=== PATIENT | female | born 1945 | race Caucasian/White ===

== ENCOUNTER 2018-02-08 09:42 | Outpatient (CLI) | payer MEDICARE, MEDICAID | END 2018-02-08 09:43 | disposition home or self-care (01) | LOC: BICMAMMO 09:42 | PROVIDERS: ATTEND Nurse Practitioner Family | DX: Z12.31 Encounter for screening mammogram for malignant neoplasm of breast (principal); Z80.3 Family history of malignant neoplasm of breast | CPT/HCPCS: 77063; 77067 ==

== ENCOUNTER 2018-03-28 22:07 | Observation (INO) | payer MEDICARE, OTHER ==
[2018-03-28 22:41] LABS: #Basophils 0.1 thou/uL (0.0-0.2); #Lymphocytes 1.1 thou/uL (1.20-3.40); #Monocytes 0.4 thou/uL (0.11-0.59); #Neutrophils 10.7 thou/uL (1.40-6.50); %Basophils 0.5 % (0.0-1.0); %Eosinophils 0.1 % (0.0-10.0); %Lymphocytes 9.3 % (21.0-51.0); %Monocytes 2.9 % (0.0-10.0); %Neutrophils 87.3 % (42.0-75.0); Hemoglobin 16.4 g/dL (12.0-16.0); Mean Corpuscular HGB CONC 34.1 g/dL (32.0-36.0); Mean Corpuscular Hemoglobin 30.2 pg (27.0-31.0); Mean Corpuscular Volume 88.5 fL (78.0-98.0); Mean Platelet Volume 7.3 fL (7.4-10.4); Platelet Count 362 thou/uL (130-400); RBC Distribution Width 12.1 % (11.5-14.5); Red Blood Cell (RBC) Count 5.42 mill/uL (4.20-5.40); White Blood Cell (WBC) Count 12.2 thou/uL (4.8-10.8)
[2018-03-28] MEDS ORDERED: Ondansetron HCl/PF 4 MG/2 ML Vial ONE (22:46)
--- NOTE | 2018-03-28 22:58 | RAD ---
AP VIEW CHEST: 03/28/2018 HISTORY: Chest pain. FINDINGS: AP view chest demonstrates the lungs to be well aerated. No evidence of active intrathoracic disease is seen. No evidence of effusions, pneumonia, or pneumothorax is seen. IMPRESSION: Unremarkable anterior-posterior view chest. POS: [facility]
[2018-03-28 23:06] LABS: CKMB 1.4 ng/mL (0-6.6); Troponin I Less than 0.010 ng/mL (< 0.028)
[2018-03-28 23:07] LABS: ALT (SGPT) 22 U/L (8-55); AST (SGOT) 29 U/L (5-34); Albumin 4.3 g/dL (3.4-4.8); Alkaline Phosphatase 77 U/L (40-150); Anion Gap 16 mmol/L (10-20); BUN (Urea Nitrogen) 11 mg/dL (9.8-20.1); Calc. Creatinine Clearance 0 mL/min (70-130); Calcium 9.4 mg/dL (7.8-10.44); Carbon Dioxide 21 mmol/L (23-31); Chloride 98 mmol/L (98-107); Estimated GFR-MDRD 73; Globulin 3.2 g/dL (2.4-3.5); Glucose 172 mg/dL (80-115); Lipase 13 U/L (8-78); Potassium 3.9 mmol/L (3.5-5.1); Protein, Total 7.5 g/dL (6.0-8.3); Sodium 131 mmol/L (136-145)
[2018-03-29 00:22] LABS: Bilirubin Negative (Negative); Blood, Urine Small (Negative); Clarity CLEAR (Clear); Glucose, Urine (Dipstick) Negative (Negative); Leukocyte Negative (Negative); Nitrite Negative (Negative); Protein, Urine (Dipstick) 300 mg/dL (Neg-Trace); Specific Gravity, Urine 1.009 (1.002-1.036); Urobilinogen 0.2 mg/dL (0.2-1.0)
[2018-03-29 00:25] LABS: Bacteria/HPF None Seen HPF (None Seen)
[2018-03-29 00:30] LABS: Pathc Cast-AUWi Flag 2.61 (0-2.49)
[2018-03-29 00:51] LABS: Other Casts/LPF 0-3 FINELY GRAN LPF (0-3 Hyaline); Renal Epithelial None Seen HPF (0-3); Transitional Epithelial NONE SEEN HPF (0-3)
[2018-03-29 02:13] LABS: Troponin I Less than 0.010 ng/mL (< 0.028)
[2018-03-29] MEDS ORDERED: Ondansetron ODT 4 MG TAB SL PRN (02:21)
[2018-03-29] MEDS ORDERED: Ondansetron HCl/PF 4 MG/2 ML Vial IVP PRN ×2 (02:21→09:06)
[2018-03-29] MEDS ORDERED: Acetaminophen 325 MG TAB PO PRN ×2 (02:21→09:06)
[2018-03-29] MEDS ORDERED: Sodium Chloride 0.9% 1,000 ML IV SCH ×2 (02:30→09:15)
[2018-03-29 02:46] VITALS: BMI 27.5
[2018-03-29 02:56] LABS: Lactic Acid 2.4 mmol/L (0.5-2.2)
[2018-03-29 06:47] LABS: Troponin I Less than 0.010 ng/mL (< 0.028)
[2018-03-29] MEDS ORDERED: Nitroglycerin 0.4 MG TAB (25 Tab Bottle) PO PRN (09:06)
--- NOTE | 2018-03-29 14:30 | NM ---
MYOCARDIAL PERFUSION STUDY: 03/29/18 HISTORY: Chest pain. Hypertension. RADIOPHARMACEUTICAL: 27 millicuries technetium 99m Sestamibi, IV at stress and 9 millicuries technetium 99m Sestamibi, IV at rest. MEDICATIONS: 0.4 mg of Lexiscan, IV. FINDINGS: No significant reversible defect is seen between the rest and stress acquisitions. Gated images demon strate normal ventricular wall motion and wall thickening. The calculated left ventricular ejection f raction is 69%. IMPRESSION: 1. Normal myocardial perfusion study without evidence of a reversible defect seen to suggest isc hemia. 2. Normal LVEF of 69%. POS: [facility]
[2018-03-29] MEDS ORDERED: Regadenoson 0.4 MG/5 ML SYRINGE ONE (14:48)
--- NOTE | 2018-03-29 14:50 | HP ---
PRIMARY CARE PROVIDER: Karey Shaw. CHIEF COMPLAINT: Chest pain. HISTORY OF PRESENT ILLNESS: Ms. Hernandez is a pleasant 72-year-old lady who was seen at [facility] on 03/29/2018. She reports that yesterday she started feeling unwell. She reports that she had chest tightness, acc ompanied by nausea, vomiting, and diarrhea. She describes it as tightness like sensation, 9/10 at it s worst, accompanied by sweating and lightheadedness. It was on and off. She cannot recall any aggr avating or relieving factors. She reports that the nausea, vomiting, and diarrhea resolved last nigh t after she came to the emergency room. REVIEW OF SYSTEMS: All other systems reviewed and found to be negative. PAST MEDICAL HISTORY: Hypertension, asthma, and COPD. PAST SURGICAL HISTORY: Appendectomy, section, hysterectomy, and tubal ligation. SOCIAL HISTORY: The patient denies alcohol use or recreational drug use. She smokes cigars. FAMILY HISTORY: Her father from myocardial infarction. Her brother also from myocardial i nfarction. ALLERGIES: PENICILLIN. CURRENT MEDICATIONS: Amlodipine 10 mg daily and hydrochlorothiazide 12.5 mg daily. PHYSICAL EXAMINATION: GENERAL: On examination, Ms. Aaron is awake and alert, not in acute distress. VITAL SIGNS: Blood pressure is 113/70, pulse is 66, she is breathing at rate of 20 and saturating 98 % on room air. She is afebrile. EYES: No scleral icterus. No conjunctival pallor. ENT: Moist mucosal membranes, no oropharyngeal erythema or exudates. NECK: Supple, nontender, trachea is midline. RESPIRATORY: Accessory muscles of breathing are not active. Chest wall movements are symmetric bila terally. LUNGS: Clear to auscultation without wheeze, rhonchi or crepitations. CARDIOVASCULAR: S1 and S2 are heard, regular. Peripheral pulses are palpable. No carotid bruit, no pericardial rub. ABDOMEN: Soft, nontender, bowel sounds are heard, no hepatomegaly, no splenomegaly. NEUROLOGIC: Cranial nerves II-XII intact. Deep tendon reflexes are 2+. MUSCULOSKELETAL: Power is 5/5 in all 4 extremities. SKIN: No rashes or subcutaneous nodules. LYMPHATIC: No cervical lymphadenopathy. PSYCHIATRIC: Normal mood, normal affect. The patient is oriented to person, place, and time. IMAGING DATA AND LABORATORY DATA: Ms. Hernandez's labs and investigations were reviewed. I reviewed her chest x-ray, which does not show any pulmonary infiltrates. I also reviewed her electrocardiogra m, which shows normal sinus rhythm, no ST changes to suggest an acute coronary syndrome. She has luis m kocytosis with 12,200 white cells, of which 87.3% are neutrophils, elevated hemoglobin of 16.4, daniel l platelet count, decreased sodium of 131, unremarkable liver profile, elevated lactic acid level of 2.4, normal creatinine, normal troponin I, normal lipase and urinalysis that is negative for nitrite and leukocyte esterase. ASSESSMENT AND PLAN: Ms. Aaron is a pleasant 72-year-old lady who was seen at [facility] on 03/29/2018. Her problem list includes: 1. Chest pain: Etiology is unclear. She will be admitted to the hospital for telemetry monitoring and for a nuclear stress test. Further management depending on outcome of the stress test. 2. Nausea and vomiting: This has resolved, etiology is unclear. 3. Diarrhea: This has resolved as well. Etiology is unclear. 4. Hyponatremia: Mild, likely asymptomatic. 5. Leukocytosis: No evidence of infection at this point. Could be secondary to gastroenteritis, gi nely the presentation with nausea, vomiting, and diarrhea. 6. Elevated hemoglobin: Could be secondary to tobacco use. She will need to have it rechecked thro h her primary care provider. 7. Tobacco abuse: Patient has been counseled regarding tobacco cessation. We will start her on ezio otine replacement therapy. Many thanks for allowing me to participate in your patient's care. Please feel free to contact me wi th any questions or concerns. LEVEL OF RISK: High. LEVEL OF COMPLEXITY: High.
[2018-03-29 15:20] VITALS: BP 154/76; TEMP 98.5
--- NOTE | 2018-03-30 02:50 | DIS ---
PRIMARY CARE PROVIDER: Dr. Karey Shaw. DATE OF ADMISSION: 03/28/2018 DATE OF DISCHARGE: 03/29/2018 DISCHARGE DIAGNOSES: 1. Chest pain. 2. Most likely musculoskeletal etiology for chest pain. 3. Probable viral gastroenteritis. HOSPITAL COURSE: Ms. Hernandez is a pleasant 72-year-old lady who was admitted to [facility] on observation status on 03/29/2018 for chest pain. Her chest pain resolved after adm ission. She had a nuclear stress test, which was normal. The left ventricular ejection fraction was 69%. She also had a normal D-dimer. She also had nausea, vomiting, and diarrhea at the time of admission. All these resolved after she c ronald to the emergency room. This was most likely secondary to gastroenteritis, likely viral. Many thanks for allowing me to participate in your patient's care. Please feel free to contact me wi th any questions or concerns. DISCHARGE DESTINATION: Home.
[2018-03-30] MEDS ORDERED: Aspirin 325 MG TAB PO SCH (09:00)
--- NOTE | 2018-04-02 11:47 | EKG ---
Test Reason : Blood Pressure : / mmHG Vent. Rate : 071 BPM Atrial Rate : 071 BPM P-R Int : 126 ms QRS Dur : 086 ms QT Int : 442 ms P-R-T Axes : 046 -21 047 degrees QTc Int : 480 ms Normal sinus rhythm Prolonged QT Abnormal ECG Confirmed by LINDSAY ALEXANDRA DO ([id number]), web editor SOULEYMANE HERRERA ([id number]) on 04/02/2018 11:46:52 AM Referred By: Confirmed By:LINDSAY ALEXANDRA DO
== END 2018-03-29 18:57 | disposition home or self-care (01) ==
LOC: ERS 22:07 → ERHOLD 23:55 → 2SW 03-29 02:00
PROVIDERS: ADMIT Hospitalist; ATTEND Hospitalist
DX: R07.89 Other chest pain (principal); R11.2 Nausea with vomiting, unspecified; R19.7 Diarrhea, unspecified; E87.1 Hypo-osmolality and hyponatremia; F17.210 Nicotine dependence, cigarettes, uncomplicated; D72.829 Elevated white blood cell count, unspecified; I10 Essential (primary) hypertension; J44.9 Chronic obstructive pulmonary disease, unspecified; Z79.899 Other long term (current) drug therapy; Z88.0 Allergy status to penicillin
CPT/HCPCS: 71045; 78452; 80053; 82550; 82553; 83605 ×2; 83690; 84484 ×3; 85025; 85379; 93005; 93017; 94760; 96361 ×2; 96374; 96375; 99285; A9500; G0378 ×2; 36415; 81003; 81015; J2270; J2405; J2785

== ENCOUNTER 2018-07-24 14:59 | Inpatient (IN) | payer MEDICARE, OTHER ==
[~2018-07-24 14:59] MED LIST: ISOVUE-370 76%-LOCM 1 ML ONE
--- NOTE | 2018-07-24 15:30 | CT ---
CT OF THE HEAD WITHOUT CONTRAST: DATE: 07/24/2018. COMPARISON: None. HISTORY: Right-sided weakness, stroke alert. TECHNIQUE: Axial Ct imaging obtained at 5 mm intervals from vertex through the skull base without contrast. FINDINGS: There is no intracranial hemorrhage, midline shift, mass effect, or ventricular enlargement. The vis ualized paranasal sinuses and mastoid air cells are well aerated. There is no displaced calvarial fr acture noted. IMPRESSION: No acute findings. Results were called to Dr. Martin at 3:20 p.m. 07/24/2018. CODE CR POS: [facility]
[2018-07-24 15:35] LABS: #Basophils 0.1 thou/uL (0.0-0.2); #Eosinphils 0.1 thou/uL (0.0-0.7); #Lymphocytes 3.1 thou/uL (1.20-3.40); #Monocytes 0.5 thou/uL (0.11-0.59); #Neutrophils 3.7 thou/uL (1.40-6.50); %Basophils 0.9 % (0.0-1.0); %Monocytes 6.6 % (0.0-10.0); %Neutrophils 49.5 % (42.0-75.0); Hemoglobin 16.5 g/dL (12.0-16.0); Mean Corpuscular HGB CONC 34.6 g/dL (32.0-36.0); Mean Corpuscular Hemoglobin 31.4 pg (27.0-31.0); Mean Platelet Volume 7.5 fL (7.4-10.4); Platelet Count 255 thou/uL (130-400); Red Blood Cell (RBC) Count 5.26 mill/uL (4.20-5.40); White Blood Cell (WBC) Count 7.4 thou/uL (4.8-10.8)
[2018-07-24 15:51] LABS: ALT (SGPT) 14 U/L (8-55); AST (SGOT) 13 U/L (5-34); Albumin 3.9 g/dL (3.4-4.8); Alkaline Phosphatase 67 U/L (40-150); Anion Gap 16 mmol/L (10-20); BUN (Urea Nitrogen) 13 mg/dL (9.8-20.1); Bilirubin, Total 0.7 mg/dL (0.2-1.2); Calc. Creatinine Clearance 0 mL/min (70-130); Calcium 9.3 mg/dL (7.8-10.44); Carbon Dioxide 20 mmol/L (23-31); Chloride 107 mmol/L (98-107); Estimated GFR-MDRD 63; Globulin 2.9 g/dL (2.4-3.5); Glucose 102 mg/dL (83-110); Potassium 4.5 mmol/L (3.5-5.1); Protein, Total 6.8 g/dL (6.0-8.3); Sodium 138 mmol/L (136-145)
[2018-07-24 15:53] LABS: PTT 37.6 SEC (22.9-36.1)
--- NOTE | 2018-07-24 15:53 | CT ---
CT ANGIOGRAM HEAD CT ANGIOGRAM NECK: DATE: 07/24/2018. COMPARISON: None. HISTORY: Stroke protocol, weakness of the right-sided weakness and slurred speech. TECHNIQUE: Axial CT imaging at 1.25 mm intervals obtained from the skull base through the lung apices with IV co ntrast using a CT angiogram protocol. Coronal and sagittal 3D reformatted imaging obtained. FINDINGS: There are emphysematous changes noted in the imaged lung apices bilaterally. The retroantral fat and the parapharyngeal fat appear clear bilaterally. The parotid glands and submandibular glands are grossly unremarkable. Tonsillar pillars, epiglottis, and preepiglottic fat, hyoid bone, thyroid cartilage, cricoid cartilage, and thyroid gland demonstra te no acute findings. There is a suggestion of a thyroid nodule on the left measuring up to 1.4 cm. Followup thyroid ultrasound suggested. The origin of the innominate artery, left subclavian artery, and left common carotid artery appears u nremarkable. The origin of the right vertebral artery and right subclavian artery appears unremarkab le as well. Bilateral vertebral artery origins appear unremarkable. Bilateral vertebral arteries are tortuous pr oximally and in their mid portion. Bilateral vertebral arteries are normal in course and caliber oth erwise. No hemodynamically significant stenosis is seen involving the vertebral artery on either em e. On the basis of NASCET criteria, there is no hemodynamically significant stenosis involving the commo n carotid artery on either side. There is mild partially calcified plaque within the proximal ICA bi laterally. On the basis of NASCET criteria, there is no hemodynamically significant stenosis associa jc with the internal carotid artery on either side. The internal carotid artery is tortuous bilater ally. The basilar artery is tortuous and demonstrates patency. Branches of the basilar artery appear paten t as well. There is either a hypoplastic P1 segment on the right or a origin of the right post erior cerebellar artery. No sacular aneurysm, high-grade stenosis, or vascular occlusion of the posterior circulation is seen. The ICA bifurcation appears unremarkable. The M1 segment is patent bilaterally. The MCA and ESVIN branches distally appear grossly unremarkable. No central arterial occlusion, sacula r aneurysm, or high-grade stenosis of the anterior circulation noted. There is no lymphadenopathy seen in the neck. Osseous structures demonstrate no acute findings. IMPRESSION: 1. Intracranial arterial structures demonstrate no central vascular occlusion. 2. On the basis of NASCET criteria, there is no hemodynamically significant stenosis involving the c arotid or vertebral system on either side. 3. Incidental note made of a thyroid nodule on the left for which thyroid ultrasound is suggested. Results called to Dr. Martin at 3:40 p.m. 07/24/2018. CODE CR POS: [facility]
[2018-07-24 15:54] LABS: INR-International Normal Ratio 1.2
--- NOTE | 2018-07-24 18:21 | RAD ---
CHEST ONE VIEW PORTABLE: History: Possible stroke alert. Left sided facial droop. Right sided weakness. Slurred speech. Comparison: 03-28-18 FINDINGS: Heart size is within normal limits. The lungs are clear. IMPRESSION: No acute intrathoracic disease. Atherosclerosis of the aorta with ectasia. POS: [facility]
[2018-07-24 18:26] LABS: Bilirubin Negative (Negative); Blood, Urine Negative (Negative); Clarity CLEAR (Clear); Glucose, Urine (Dipstick) Negative (Negative); Leukocyte Small (Negative); Nitrite Negative (Negative); Protein, Urine (Dipstick) Negative (Neg-Trace); Urobilinogen 0.2 mg/dL (0.2-1.0); pH, Urine 6.5 (5.0-9.0)
[2018-07-24 18:28] LABS: Bacteria/HPF Rare-Few HPF (None Seen); Hyaline Casts/LPF 0-3 HYALINE CAST LPF (0-3 Hyaline); Pathc Cast-AUWi Flag 0.14 (0-2.49); RBC/HPF 0-3 HPF (0-3)
[2018-07-24 18:29] LABS: Specific Gravity, Urine Greater than 1.060 (1.002-1.036)
[2018-07-24 19:07] LABS: Troponin I Less than 0.010 ng/mL (< 0.028)
[2018-07-24] MEDS ORDERED: hydrALAZINE 20 MG/ML VIAL SLOW IVP PRN (20:36)
[2018-07-24] MEDS ORDERED: Albuterol Sulfate 1.25 MG/3 ML NEB NEB PRN (20:38)
--- NOTE | 2018-07-24 21:52 | HP ---
PRIMARY CARE PROVIDER: [facility]. CHIEF COMPLAINT: Right-sided weakness. HISTORY OF PRESENT ILLNESS: This 73-year-old female with COPD, on home oxygen at night; hypertension; migraine headache; and tobacco abuse, who presents to the emergency room with a complaint of right-sided weakness. The patient reports she had a headache yesterday consistent with her typical migraines that she averages few times per month, for which she went to bed. She woke up today shortly before 10:00 a.m. and was unable to move her right arm and right leg. She states that she tried to get up to make coffee, fell, and did not tell anyone. She took 600 mg of ibuprofen and went back to bed. She again woke up few hours later with slurred speech and facial drooping, noticed by her roommate and her friend, who called the ambulance. The patient was life flighted to this hospital for further evaluation. Current deficits now are right-sided facial numbness, right arm and leg weakness with little movement in either, as well as diplopia. In addition to the ibuprofen, the patient took her roommate's Eliquis 5 mg sometime between 2 and 3 p.m. this afternoon. She reports that her roommate is on Eliquis for history of stroke, and she thought it would be a good idea. In the emergency room, the patient's presentation consistent with stroke, she had a negative CT, she was not a candidate for tPA due to waking up with symptoms and time until evaluation, and hospitalist called for admission. She did receive 500 mL of normal saline and 324 mg of aspirin. PAST MEDICAL HISTORY: 1. COPD and asthma. 2. Hypertension. 3. Migraines. PAST SURGICAL HISTORY: 1. Appendectomy. 2. x3. 3. Hysterectomy and tubal ligation. 4. Cholecystectomy. ALLERGIES: PENICILLIN. CURRENT MEDICATIONS: Reconciled with the patient; 1. Melatonin 5 mg two tablets at night. 2. Combivent twice daily one puff. 3. Albuterol by nebulizer 3 to 4 times per day as needed. 4. Aumjsfo-hybwkwbxb-asvo one tablet twice daily. 5. Hydrochlorothiazide 12.5 mg daily. 6. Amlodipine 10 mg daily. 7. Symbicort one inhalation twice daily. 8. ProAir two puffs four times daily. 9. Home oxygen 2.5 L at night and during the day if she needs. SOCIAL HISTORY: The patient lives with her roommate, who is her surrogate decision maker. Olivia Jane, phone #[phone]. She is a full code, she uses 1/2 pack of tobacco per day. REVIEW OF SYSTEMS: Positive for chills over the past few weeks, vomiting and nausea associated with headache, chronic difficulty breathing where she has chest tightness and wheezing as well as productive cough, and bilateral leg pain at night. It is negative for fevers, difficulty swallowing, or changes in movement on her left side. All remaining review of systems are reviewed and negative. PHYSICAL EXAMINATION: VITAL SIGNS: Blood pressure 162/97, pulse 55, respirations 17, temp 97.8, and sats 98% on room air. GENERAL: Awake, alert, responsive, in no apparent distress. Able to speak in regular sentences. HEENT: Her pupils are equal, round, and reactive to light. Oral mucosa is pink and moist. NECK: Supple, nontender. LYMPHATICS: No palpable cervical or supraclavicular lymphadenopathy. LUNGS: She has scattered rhonchi, expiratory wheezing, and fair air movement. HEART: Normal S1 and S2. Regular rate and rhythm. No significant murmur. ABDOMEN: Soft. Present bowel sounds. Nontender, nondistended. EXTREMITIES: No clubbing, cyanosis, or edema. SKIN: No visible rashes. NEURO: Right-sided facial drooping. Right upper extremity; she has 2/5 in her right upper extremity with more movement in her fingers and her shoulder. Her right lower extremity; some movement in her toes and able to move slightly from side to side with a 2/5 strength. PSYCH: The patient is euthymic. Appears stated age, making good eye contact. LABORATORY DATA: Reviewed. CBC; 7.4, 16.5, 47.8, and 255. INR 1.2. Renal panel; 138, 4.5, 107, 20, 13, 0.88, and 102. LFTs negative. Troponin negative x2. UA shows greater than 1.06 specific gravity, small leukocyte esterase, 7 to 10 squamous cells, and 11 to 20 white blood cells. Chest x-ray is personally reviewed; negative for any acute process, atherosclerosis of the aorta with ectasia. CT of the brain without contrast; no acute findings. CT angiogram of the head and neck showed no central vascular occlusion, no hemodynamically significant stenosis, and incidental note of a thyroid nodule on the left with recommendation for a thyroid ultrasound. EKG, personally reviewed; sinus rhythm, normal axis, normal intervals, no ST changes. IMPRESSION: 1. Stroke in a patient with risk factors of hypertension and tobacco abuse. 2. Hypertension, unknown control. 3. Chronic obstructive pulmonary disease and asthma, at least moderate in severity by history. 4. Tobacco abuse. 5. Thyroid nodule, incidental finding on CT. 6. Possible polycythemia versus dehydration. 7. Nocturnal leg pain, possibly claudication. PLAN: 1. Admission to the hospital. 2. Stroke Team evaluation including Neurology, PT/OT, and Speech. 3. Continuing the aspirin. 4. Permissive hypertension, prn hydralazine for bp > 220/110.. 5. MRI ordered for tomorrow to evaluate the extent of stroke. 6. Continuing her inhalers including inhaled long-acting bronchodilator and steroid, as well as scheduled Combivent and p.r.n. albuterol. We will also order oxygen for as-needed use. 7. Monitor for any bleeding given the dose of Eliquis that patient took earlier today. 8. Monitoring on telemetry and echocardiogram. 9. Recommend evaluation of leg pain for possible claudication, and thyroid nodule, as an outpatient with primary care provider. 10. DVT prophylaxis with enoxaparin. 11. GI prophylaxis, not indicated. 12. Code status is Full. Surrogate decision maker is Olivia Jane with phone number above. 13. The patient is at high risk given age comorbidities and current presentation. 14. Reviewed the plan of care with the patient, who demonstrates understanding. No questions or further needs at end of evaluation. Job ID: [id number] [facility]
[2018-07-24 22:27] LABS: Troponin I Less than 0.010 ng/mL (< 0.028)
[2018-07-24] MEDS: Atorvastatin Calcium 40 MG TAB PO SCH (23:01)
[2018-07-25 05:22] LABS: #Basophils 0.1 thou/uL (0.0-0.2); #Eosinphils 0.1 thou/uL (0.0-0.7); #Lymphocytes 2.6 thou/uL (1.20-3.40); #Monocytes 0.5 thou/uL (0.11-0.59); #Neutrophils 3.5 thou/uL (1.40-6.50); %Basophils 1.1 % (0.0-1.0); %Eosinophils 0.9 % (0.0-10.0); %Lymphocytes 39.2 % (21.0-51.0); %Monocytes 7.5 % (0.0-10.0); %Neutrophils 51.3 % (42.0-75.0); Hemoglobin 14.3 g/dL (12.0-16.0); Mean Corpuscular HGB CONC 33.6 g/dL (32.0-36.0); Mean Corpuscular Hemoglobin 30.4 pg (27.0-31.0); Mean Corpuscular Volume 90.5 fL (78.0-98.0); Mean Platelet Volume 7.7 fL (7.4-10.4); Platelet Count 249 thou/uL (130-400); RBC Distribution Width 11.8 % (11.5-14.5); Red Blood Cell (RBC) Count 4.72 mill/uL (4.20-5.40); White Blood Cell (WBC) Count 6.7 thou/uL (4.8-10.8)
[2018-07-25 05:41] VITALS: BMI 27.8
[2018-07-25 05:47] LABS: Anion Gap 10 mmol/L (10-20); BUN (Urea Nitrogen) 16 mg/dL (9.8-20.1); Calc. Creatinine Clearance 69 mL/min (70-130); Carbon Dioxide 30 mmol/L (23-31); Cardiac Risk 3.7 (Less than 4.5); Chloride 105 mmol/L (98-107); Cholesterol 155 mg/dl (< 200 Desired); Estimated GFR-MDRD 63; Glucose 95 mg/dL (83-110); HDL Cholesterol 42 mg/dL (>60 Neg Risk); LDL Cholesterol, Calculated 92 mg/dL; Potassium 3.8 mmol/L (3.5-5.1); Sodium 141 mmol/L (136-145); Triglycerides 106 mg/dL (Less than 150)
[2018-07-25] MEDS: Arformoterol 15 MCG/2 ML NEB NEB SCH ×2 (07:49→19:19)
[2018-07-25] MEDS: Budesonide 0.5 MG/2 ML NEB INH SCH ×2 (07:49→19:18)
--- NOTE | 2018-07-25 08:44 | PDOC.PN ---
- Subjective Encounter Start Date: 07/25/18 Encounter Start Time: 11:30 Subjective: Patient reports some improvement in weakness on right side. Arm better -: than leg. Eating well and no dysarthria/aphasia. Had MRI this morning. - Objective Resuscitation Status - Order Detail: 07/24/18 20:36 Resuscitation Status Routine Resuscitation Status: FULL: Full Resuscitation MAR Reviewed: Yes Vital Signs & Weight: Vital Signs (12 hours) Temp Pulse Resp BP Pulse Ox 07/25/18 07:57 92 L 07/25/18 07:49 60 16 07/25/18 07:37 97.7 F 57 L 18 152/83 H 92 L 07/25/18 04:00 97.7 F 59 L 18 138/85 99 07/25/18 02:32 64 16 07/24/18 22:15 96 07/24/18 22:09 60 20 96 07/24/18 22:05 98.0 F 58 L 16 143/95 H 96 Weight Weight 167 lb 4.8 oz Result Diagrams: 07/25/18 04:45 07/25/18 04:45 Additional Labs: Accuchecks 07/24/18 15:18 POC Glucose 101 Phys Exam - Physical Examination Constitutional: NAD HEENT: moist MMs Respiratory: no wheezing, no rales, no rhonchi Cardiovascular: RRR, no significant murmur Gastrointestinal: soft, positive bowel sounds Musculoskeletal: no edema RUE 3.5/5 RLE 3/5 No/minimal facial droop Psychiatric: normal affect, A&O x 3 Dx/Plan (1) Acute ischemic stroke Code(s): I63.9 - CEREBRAL INFARCTION, UNSPECIFIED Status: Acute Comment: On ASA, Atorvastatin, MRI pending (2) HTN (hypertension) Code(s): I10 - ESSENTIAL (PRIMARY) HYPERTENSION Status: Chronic Qualifiers: Hypertension type: essential hypertension Qualified Code(s): I10 - Essential (primary) hypertension (3) COPD (chronic obstructive pulmonary disease) Status: Chronic (4) Tobacco abuse Code(s): Z72.0 - TOBACCO USE Status: Chronic (5) Thyroid nodule Code(s): E04.1 - NONTOXIC SINGLE THYROID NODULE Status: Acute Comment: Incidental finding on CT, needs outpatient followup - Plan cont current plan of care, PT/OT, DVT proph w/lovenox, DVT proph w/SCDs * . - Discharge Day Encounter end time: 11:45
[2018-07-25] MEDS: Aspirin 325 mg Enteric Coated Tablet PO SCH (08:54)
[2018-07-25] MEDS: Enoxaparin Sodium 40 MG/0.4 ML SYRINGE SC SCH (08:54)
--- NOTE | 2018-07-25 09:41 | MRI ---
NONCONTAST BRAIN MRI: COMPARISON: Reference is made to head CT of previous day. INDICATION: History of right-sided weakness and stroke. FINDINGS: There is no acute territorial infarction, intracranial hemorrhage, mass effect, midline shift, or nely triculomegaly. There is mild chronic ischemic disease of the cerebral white matter. Motion artifac t limits evaluation. There is moderate right mastoid fluid. Correlate clinically. No intracranial hemorrhagic susceptibility. IMPRESSION: 1. No acute territorial infarction or mass effect. 2. Mild chronic ischemic disease. 3. Right mastoid effusion. POS: [facility]
[2018-07-25] MEDS: Acetaminophen 325 MG TAB PO PRN (16:40)
[2018-07-25] MEDS ORDERED: Chloraseptic Spray 180 ml Bottle PO PRN (17:34)
--- NOTE | 2018-07-25 22:31 | CON ---
DATE OF CONSULTATION: 07/25/2018 TYPE OF CONSULTATION: Neurology. CONSULTING PHYSICIAN: Hospitalist Service. 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 2. Hypertension. PLAN: 1. Aspirin 325 mg per day. 2. Lipitor 40 mg per day. 3. Continue blood pressure control. 4. Outpatient therapy program. HISTORY OF PRESENT ILLNESS: Ms. Hernandez is a 73-year-old white female with a known history of hypertension. She reports she awoke from sleep with right-sided weakness yesterday. She denies any associated headache, nausea, vomiting or vertigo. She does report diminished sensation to touch on that side as well. Her CT and CT angiograms were all unremarkable. She had a followup MRI of the brain, which revealed minimal amount of small-vessel ischemic changes but no acute ischemic event. She continues to report neurologic deficit. She was able to walk with a walker to the bathroom in an independent fashion. PAST MEDICAL HISTORY: Otherwise negative. ALLERGIES: PENICILLIN. MEDICATIONS: 1. Hydrochlorothiazide. 2. Norvasc. 3. Melatonin. FAMILY HISTORY: Unremarkable. REVIEW OF SYSTEMS: No complaint of confusion, loss of consciousness, neck pain, difficulty swallowing, chest pain, shortness of breath, abdominal pain, cramps or diarrhea, joint pain, or swelling. PHYSICAL EXAMINATION: GENERAL: This is a well-nourished elderly woman, sitting up in the bed, in no acute distress. VITAL SIGNS: Blood pressure 141/87, pulse 82, respirations 20, and temperature 98.7. HEENT: Pupils are equal. Conjunctivae clear. Oropharynx clear. NECK: Supple. No lymphadenopathy. EXTREMITIES: No cyanosis, clubbing, or edema. ABDOMEN: Nontender. NEUROLOGIC: She was alert and cooperative. Her speech is fluent and clear. Cranial nerve exam was only notable for subtle right facial flattening. Motor exam showed antigravity strength on the right side, though she had some variable amount of effort with different movements. Sensation was subjectively decreased in the right arm and leg. Reflexes show downgoing toes bilaterally. No tremor or other abnormal movement was noted. She can walk with the use of a walker. LABORATORY STUDIES: Including CBC, coags, and chemistry panel were unremarkable. Her risk ratio was 3.7. Imaging was reviewed. SUMMARY: Given the inconsistent findings on exam, I suspect that this is embellished. Agree with current management. She appears stable for discharge. Job ID: [id number]
[2018-07-25] MEDS: Atorvastatin Calcium 40 MG TAB PO SCH (22:34)
[2018-07-26] MEDS: Arformoterol 15 MCG/2 ML NEB NEB SCH (07:42)
[2018-07-26] MEDS: Budesonide 0.5 MG/2 ML NEB INH SCH (07:47)
--- NOTE | 2018-07-26 08:54 | PDOC.PN ---
- Subjective Encounter Start Date: 07/26/18 Encounter Start Time: 11:00 Subjective: Patient reports improvement in symptoms. Got up with PT and amb -: in hallway with walker. Ready to go home. - Objective Resuscitation Status - Order Detail: 07/24/18 20:36 Resuscitation Status Routine Resuscitation Status: FULL: Full Resuscitation MAR Reviewed: Yes Vital Signs & Weight: Vital Signs (12 hours) Temp Pulse Resp BP Pulse Ox 07/26/18 07:48 69 16 95 07/26/18 07:47 97.8 F 72 18 144/88 H 91 L 07/26/18 07:42 69 16 95 07/26/18 04:00 98.0 F 75 19 151/92 H 93 L 07/26/18 00:00 98.0 F 82 19 125/74 95 07/25/18 21:43 74 18 99 07/25/18 21:25 95 Weight Weight 167 lb 4.8 oz I&O: 07/25/18 07/26/18 07/27/18 06:59 06:59 06:59 Intake Total 1999 Balance 1999 Result Diagrams: 07/25/18 04:45 07/25/18 04:45 Phys Exam - Physical Examination Constitutional: NAD HEENT: moist MMs Respiratory: no wheezing, no rales, no rhonchi Cardiovascular: RRR, no significant murmur Gastrointestinal: soft, positive bowel sounds Musculoskeletal: no edema Patient acts like she can't lift her right arm, but if she puts her left anderson nd on top to stabilize she then can lift it up. 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 - OTHER SOMATOFORM DISORDERS Status: Acute Comment: MRI neg, exam variable, patient able to get around room better than exam would suggest (2) Acute ischemic stroke Code(s): I63.9 - CEREBRAL INFARCTION, UNSPECIFIED Status: Ruled-out Comment : On ASA, Atorvastatin, MRI negative for stroke (3) HTN (hypertension) Code(s): I10 - ESSENTIAL (PRIMARY) HYPERTENSION Status: Chronic Qualifiers: Hypertension type: essential hypertension Qualified Code(s): I10 - Essential (primary) hypertension (4) COPD (chronic obstructive pulmonary disease) Status: Chronic (5) Tobacco abuse Code(s): Z72.0 - TOBACCO USE Status: Chronic (6) Thyroid nodule Code(s): E04.1 - NONTOXIC SINGLE THYROID NODULE Status: Acute Comment: Incidental finding on CT, needs outpatient followup - Plan cont current plan of care, PT/OT Patient would like to go home. States she has a walker at home already. -: Will arrange home health and discharge home today. * . - Discharge Day Encounter end time: 11:15
[2018-07-26] MEDS: Enoxaparin Sodium 40 MG/0.4 ML SYRINGE SC SCH (09:29)
[2018-07-26] MEDS: Acetaminophen 325 MG TAB PO PRN (09:29)
[2018-07-26] MEDS: Aspirin 325 mg Enteric Coated Tablet PO SCH (09:29)
[2018-07-26 11:49] VITALS: BP 142/88; TEMP 97.9
--- NOTE | 2018-07-27 04:43 | DIS ---
DATE OF ADMISSION: 07/24/2018 DATE OF DISCHARGE: 07/26/2018 PRIMARY CARE PHYSICIAN: Karey Shaw. REASON FOR ADMISSION: Ischemic stroke. DIAGNOSES AT DISCHARGE: 1. Psychogenic paralysis. 2. Acute ischemic stroke ruled out. 3. History of previous ischemic strokes. 4. Hypertension. 5. Chronic obstructive pulmonary disease. 6. Tobacco abuse. 7. Thyroid nodule. PROCEDURES: 1. CT of the brain showing no acute findings. 2. CT angiography of the head and neck showing no central vascular occlusion, no hemodynamically significant stenosis of the carotid or vertebral systems, an incidental note of a thyroid nodule on the left. 3. MRI of the brain showing no acute territorial infarction or mass effect, mild chronic ischemic disease. CONSULTATIONS: Neurology, Dr. Cha. SUMMARY OF HOSPITAL COURSE: This is a 73-year-old female with history of COPD, on home oxygen at night, hypertension, migraine headaches, and continued tobacco use, who presents to the emergency room with right-sided weakness. She said she had headache previously, typical for migraines, then woke up on the morning of admission, unable to move her right arm and leg. She states that she tried to get up to make a coffee, fell, and did not tell anyone, woke up a few hours later with slurred speech and facial drooping. Her roommate noticed and called the ambulance. She also had noted some diplopia in the emergency room. The patient was evaluated in the emergency room. Head CT was done as above and was admitted for likely acute ischemic stroke. MRI was done with the above results. Dr. Cha was consulted and he noted that her symptoms were inconsistent and when I examined her, she would report right arm weakness, not being able to lift it, but if she laid her left hand on top of her arm, then she was able to lift it up, but she did not lift it with using her left hand. She also in spite of having a severe weakness of her right leg while she is lying down leg, she would get up with physical therapy with a walker and was able to use a walker to get over to the bedside commode without too much difficulty. Eventually, Dr. Cha considered that this might possibly be psychogenic paralysis, but the patient is not having any acute ischemic stroke and she was cleared to be discharged. The patient was eager to go home on the day of discharge and stated she would do well there. She already has a walker and we will appreciate home health physical therapy. DISCHARGE MANAGEMENT: Discharged home with home health. ACTIVITY: As tolerated. DIET: Healthy heart low-sodium diet. THERAPY: Occupational and physical therapy at home. FOLLOWUP: Follow up with primary care doctor in the next couple of weeks. She will need to follow up on the thyroid nodule. MEDICATIONS: 1. The patient is to start taking aspirin again, she had stopped taking it for some time, 325 mg one tablet daily. 2. Atorvastatin 40 mg daily, 30 tablets dispensed and then resume other home medications. 3. Amlodipine 10 mg daily. 4. Hydrochlorothiazide 12.5 mg daily. 5. Melatonin 10 mg at night. Job ID: [id number]
== END 2018-07-26 13:22 | disposition home health service (06) | DRG 880 ==
LOC: ERS 14:59 → ERHOLD 17:06 → 2SE 21:59
PROVIDERS: ADMIT Family Medicine; ATTEND Family Medicine
DX: F44.4 Conversion disorder with motor symptom or deficit (principal); J44.9 Chronic obstructive pulmonary disease, unspecified; I10 Essential (primary) hypertension; G43.909 Migraine, unspecified, not intractable, without status migrainosus; E04.1 Nontoxic single thyroid nodule; F17.210 Nicotine dependence, cigarettes, uncomplicated; M79.606 Pain in leg, unspecified; Z86.73 Personal history of transient ischemic attack (TIA), and cerebral infarction without residual deficits; Z99.81 Dependence on supplemental oxygen; Z90.49 Acquired absence of other specified parts of digestive tract; Z90.710 Acquired absence of both cervix and uterus; Z98.51 Tubal ligation status; Z88.0 Allergy status to penicillin; Z79.899 Other long term (current) drug therapy
CPT/HCPCS: 36415; 36416; 70450; 70496; 70498; 70551; 71045; 80048; 80053; 80061; 81003; 81015; 84484; 85025; 85610; 85730; 90471; 90662; 93005; 93306; 94760; 96360; G0008; J1650; J2997; J7620; J7626

== ENCOUNTER 2019-02-21 09:00 | Outpatient (CLI) | payer MEDICARE, OTHER ==
--- NOTE | 2019-02-21 09:41 | MMO ---
Bilateral MAMMO Bilat Screen [facility]. CLINICAL HISTORY: Patient is 73 years old and is seen for screening. The patient has no personal history of cancer. VIEWS: The views performed were: bilateral craniocaudal with tomosynthesis and bilateral mediolateral oblique with tomosynthesis. FILMS COMPARED: The present examination has been compared to prior imaging studies performed at [facility] on 10/01/2014, 01/09/2016, 02/04/2017 and 02/08/2018. MAMMOGRAM FINDINGS: There are scattered fibroglandular densities. There are no suspicious masses, calcifications or areas of architectural distortion. There are benign appearing calcifications in both breasts. There are no suspicious masses, suspicious calcifications, or new areas of architectural distortion. IMPRESSION: THERE IS NO MAMMOGRAPHIC EVIDENCE OF MALIGNANCY. A ROUTINE FOLLOW-UP MAMMOGRAM IN 1 YEAR IS RECOMMENDED. THE RESULTS OF THIS EXAM WERE SENT TO THE PATIENT. ACR BI-RADS Category 2 - Benign finding MAMMOGRAPHY NOTE: 1. A negative mammogram report should not delay a biopsy if a dominant of clinically suspicious mass is present. 2. Approximately 10% to 15% of breast cancers are not detected by mammography. 3. Adenosis and dense breasts may obscure an underlying neoplasm. Reported by: ARIEL SIU MD Electonically Signed: [id number]
== END 2019-02-21 09:01 | disposition home or self-care (01) ==
LOC: BICMAMMO 09:00
PROVIDERS: ATTEND Nurse Practitioner Family
DX: Z12.31 Encounter for screening mammogram for malignant neoplasm of breast (principal)
CPT/HCPCS: 77063; 77067

== ENCOUNTER 2020-03-25 10:15 | Outpatient (CLI) | payer MEDICARE, MEDICAID ==
--- NOTE | 2020-03-25 11:50 | MMO ---
Bilateral MAMMO Bilat Screen [facility]. CLINICAL HISTORY: Patient is 74 years old and is seen for screening. The patient has no personal history of cancer. VIEWS: The views performed were: bilateral craniocaudal with tomosynthesis and bilateral mediolateral oblique with tomosynthesis. FILMS COMPARED: The present examination has been compared to prior imaging studies performed at [facility] on 01/09/2016, 02/04/2017, 02/08/2018 and 02/21/2019. This study has been interpreted with the assistance of computer-aided detection. MAMMOGRAM FINDINGS: There are scattered fibroglandular densities. There are stable benign appearing calcifications seen in both breasts. There are no suspicious masses, suspicious calcifications, or new areas of architectural distortion. IMPRESSION: THERE IS NO MAMMOGRAPHIC EVIDENCE OF MALIGNANCY. A ROUTINE FOLLOW-UP MAMMOGRAM IN 1 YEAR IS RECOMMENDED. THE RESULTS OF THIS EXAM WERE SENT TO THE PATIENT. ACR BI-RADS Category 2 - Benign finding MAMMOGRAPHY NOTE: 1. A negative mammogram report should not delay a biopsy if a dominant of clinically suspicious mass is present. 2. Approximately 10% to 15% of breast cancers are not detected by mammography. 3. Adenosis and dense breasts may obscure an underlying neoplasm. Reported by: MARCO ANTONIO TSANG MD Electonically Signed: [id number]
== END 2020-03-25 10:16 | disposition home or self-care (01) ==
LOC: BICMAMMO 10:15
PROVIDERS: ATTEND Family Medicine
DX: Z12.31 Encounter for screening mammogram for malignant neoplasm of breast (principal)
CPT/HCPCS: 77063; 77067